=== PATIENT | female | born 2005 | race Hispanic/Latino ===

== ENCOUNTER 2025-04-09 19:57 | Emergency (ER) | payer OTHER ==
[~2025-04-09] VITALS: Ht 149.9 cm; Wt 81.6 kg
--- NOTE | 2025-04-09 20:08 | ERN ---
ED Note History of Present Illness Stated Complaint: SMASHED FINGERS WITH MED ROOM DOOR Time Seen by MD: 19:59 Dictation: PATIENT IS A 19-YEAR-OLD FEMALE WHO HAS A NURSE AT [facility] COMING IN WITH RIGHT 2ND FINGER PAIN. SHE WAS WORKING ON THE FLOOR WHEN SHE WAS CLOSED IN THE DOOR IN THE MED ROOM AND IT CLOTHES ON HER RIGHT HAND, CRUSHING HER RIGHT 2ND FINGER PIP JOINT. SHE HAS DECREASED RANGE OF MOTION SECONDARY TO PAIN WITH SOME ECCHYMOSIS NOTED. DISTAL NEUROVASCULAR CMS INTACT SKIN IS INTACT. ONSET WAS 13:00 HOURS TODAY. Allergies: Coded Allergies: No Known Drug Allergies (Unverified Allergy, Unknown, 04/09/25) Past Medical History History: Not Applicable RN Note Reviewed/Agreed w/PFSH: Yes Review of System Dictation CONSTITUTIONAL: NEGATIVE EXCEPT FOR HPI HEAD/FACE: NEGATIVE EXCEPT FOR HPI EENT: NEGATIVE EXCEPT FOR HPI RESPIRATORY: NEGATIVE EXCEPT FOR HPI GASTROINTESTINAL/ABDOMINAL: NEGATIVE EXCEPT FOR HPI GENITOURINARY: NEGATIVE EXCEPT FOR HPI MUSCULOSKELETAL: NEGATIVE EXCEPT FOR HPI RIGHT 2ND FINGER PIP JOINT PAIN INTEGUMENTARY: NEGATIVE EXCEPT FOR HPI NEUROLOGICAL/PSYCH: NEGATIVE EXCEPT FOR HPI HEMATOLOGIC/LYMPHATIC: NEGATIVE EXCEPT FOR HPI ALL SYSTEMS NEGATIVE, EXCEPT NOTED ABOVE. 13 POINT REVIEW OF SYSTEMS ASSESSED AND ALL NEGATIVE EXCEPT FOR ABOVE. Initial Vital Sign VS Vital Signs Date Time Temp Pulse Resp B/P (MAP) Pulse Ox O2 Delivery O2 Flow Rate FiO2 04/09/25 20:09 98.6 95 18 120/72 97 Room Air 0 Physical Exam Dictation VITAL SIGNS REVIEWED GENERAL APPEARANCE: ALERT, ORIENTED X 3, MILD ACUTE DISTRESS, WELL DEVELOPED, NO URISHED. HEAD AND FACE: NON-TRAUMATIC. EYES: PERRL, PINK CONJUNCTIVAS, EYELID NO TRAUMA, ANTERIOR CHAMBER WITH ARCUS SENILIS. EARS: PINNAS INTACT AND NO SIGNS OF TRAUMA OR ERYTHEMA EAR CANALS CLEAR AND NO DISCHARGE TM NO ERYTHEMA NOSE: NO DISCHARGE, NO BLEEDING. OROPHARYNX: MOUTH NORMAL, TONGUE PINK, PHARYNX CLEAR,NO ERYTHEMA, TONSILS NO EXUDATES, NO ABSCESSES NOTED, MUCOUS M EMBRANE MOIST NECK: SUPPLE, NON-TENDER, NO THYROMEGALY, NO MASSES, NO JVD, NO BRUITS BREAST:DEFERRED CHEST:NO TENDERNESS, NO CREPITUS, NO PARADOXICAL MOVEMENT, NO RETRACTIONS LUNGS:CLEAR, WELL-VENTILATED, SYMMETRIC, NO RALES, NO WHEEZING, NO RHONCHI, NO STRIDOR, GOOD BREATH SOUNDS BILATERALLY HEART: REGULAR RATE, REGULAR RHYTHM, NO MURMUR, NO GALLOPS VASCULAR: NO PERIPHERAL EDEMA, ABDOMEN: SOFT, POSITIVE BOWEL SOUNDS, NONDISTENDED, NO GUARDING, NONTENDER, NO REBOUND, NO MASSES NO HEPATOMEGALY, NO SPLENOMEGALY, NO GODINEZ'S SIGN, NO HERNIAS. RECTAL: DEFERRED GENITAL: DEFERRED NEUROLOGICAL: NORMAL SPEECH, MOTOR FUNCTION INTACT, SENSORY FUNCTION INTACT MUSCULOSKELETAL: NECK NONTENDER, FULL RANGE OF MOTION, BACK NONTENDER, FULL RANGE OF MOTION, EXTREMITIES: RIGHT 2ND FINGER PIP TENDERNESS WITH MILD SWELLING AND DECREASED RANGE OF MOTION SECONDARY TO PAIN. DISTAL NEUROVASCULAR CMS INTACT SKIN INTACT SKIN: COLOR PINK, DRY, NO TURGOR, NO RASH, NO LACERATIONS, NO ABRASIONS, NO CONTUSIONS. LYMPHATIC: DEFERRED Results (Laboratory/Radiology) Laboratory/Radiology 2030/QUESTIONABLE FRACTURE AT THE DISTAL ASPECT OF THE PROXIMAL 2ND PHALANGES Labs Reviewed?: Yes ED Course ED Course Orders Procedure Category Date Status Time Hand 3+Vws Rt RAD 04/09/25 Taken 20:05 Apply Ice Pack To: CPOE 04/09/25 Transmitted (Er) 20:05 Acetaminophen 500mg PHA 04/09/25 Complete Tab (Tylenol 500mg T 20:30 Finger Splint FEDERICO 04/09/25 Transmitted 20:29 Current Medications Medications (Trade) Dose Ordered Sig/Mariano Route PRN Reason Start Time Stop Time Status Last Admin Dose Admin Acetaminophen (TYLenol 500MG TAB) 1,000 mg ONCE ONCE PO 04/09/25 20:30 04/09/25 20:31 DC Vital Signs Date Time Temp Pulse Resp B/P (MAP) Pulse Ox O2 Delivery O2 Flow Rate FiO2 04/09/25 20:09 98.6 95 18 120/72 97 Room Air 0 2030/FINGER SPLINT PLACED BY TECH WITH DISTAL NEUROVASCULAR CMS INTACT POST PLACEMENT. PATIENT WAS SHOWN X-RAY HAS MADE AWARE TO FOLLOW UP WITH DR. MERLIN QUINONES. Medical Decision Making MDM MEDICAL DECISION-MAKING BASED ON PAIN MANAGEMENT AND X-RAY OF RIGHT HAND WITH FOCUS ON 2ND FINGER QUESTIONABLE PHALANX FRACTURE TO THE DISTAL ASPECT OF THE PROXIMAL NONDISPLACED FINGER SPLINT PLACED PATIENT REFERRED TO DR. MERLIN QUINONES DX & DISP Disposition: Discharge Departure Impression: Primary Impression: Fracture of proximal phalanx of finger of right hand Additional Impression: Crush injury Condition: Stable Scripts Ibuprofen (Ibuprofen 800 mg Tab) 800 Mg Tab 800 MG PO Q8H PRN for fever or pain, #30 TAB 0 Refills Prov: EPHRAIM REILLY NP 04/09/25 Additional Instructions: FOLLOW-UP WITH PRIMARY CARE PROVIDER IN 1 TO 2 DAYS. TAKE MEDICATIONS DIRECTED HERE IN THE EMERGENCY ROOM. OKAY TO CONTINUE HOME MEDICATIONS UNLESS OTHERWISE DISCUSSED DURING YOUR VISIT IN THE EMERGENCY ROOM TODAY. RETURN TO YOUR NEAREST EMERGENCY ROOM IF SYMPTOMS WORSEN OR IF THERE IS NO IMPROVEMENT. CALL 911 IF YOU NEED IMMEDIATE ASSISTANCE. TAKE TYLENOL OR MOTRIN [id number] NEEDED AND IF NO CONTRAINDICATIONS ARE PRESENT. INCREASE ORAL HYDRATION. A WOUND CULTURE OR URINE CULTURE WAS ORDERED HERE IN THE EMERGENCY ROOM DEPARTMENT PLEASE FOLLOW-UP WITH PRIMARY CARE PROVIDER AND ADVISE THEM TO GET REPEAT PORTS FROM OUR FACILITY. IF YOU HAD ANY GILLES WRAP/SPLINTS THAT WERE APPLIED HERE, PLEASE DO NOT REMOVE THEM UNTIL YOU SEE YOUR PRIMARY CARE OR SPECIALTY. SPLINT/NO WEIGHT-BEARING RIGHT HAND UNTIL CLEARED BY ORTHOPEDIC SURGERY, CALL FOR AN APPOINTMENT TOMORROW. COOL COMPRESSES TO PAIN THREE TO 4 TIMES A DAY. TAKE IBUPROFEN NEEDED WITH FOOD FOR PAIN. Referrals: SELF,REFERRAL (PCP) MERLIN QUINONES MD Time of Disposition: 20:34 I have reviewed the case, and I agree with, Diagnosis and Plan EPHRAIM REILLY NP Apr 09, 2025 20:08
[2025-04-09] MEDS: acetaMINOPHEN 500 MG TABLET PO ONE (20:33)
[2025-04-09] MEDS ORDERED: IBUP-2077 PO (20:36)
[2025-04-09 20:40] VITALS: BP 122/70; PULSE 95; RESP 18; TEMP 98.4; O2SAT 98
--- NOTE | 2025-04-09 20:50 | HMCIMG ---
RIGHT HAND RADIOGRAPHS - 3 VIEWS INDICATION: Right second finger PIP joint pain COMPARISON: None FINDINGS: AP, lateral, and oblique views. No acute fracture of subluxation identified. Scaphoid bone is intact. Carpal alignment and ulnar variance is within normal limits. No radiopaque foreign body noted. IMPRESSION: No evidence for fracture or subluxation.
== END 2025-04-09 20:25 | disposition home or self-care (01) ==
LOC: EDH 19:57
DX: S62.610A Displaced fracture of proximal phalanx of right index finger, initial encounter for closed fracture (principal); W23.0XXA Caught, crushed, jammed, or pinched between moving objects, initial encounter; Y93.89 Activity, other specified; Y92.89 Other specified places as the place of occurrence of the external cause; Y99.8 Other external cause status
CPT/HCPCS: 29130; 73130; 99284